=== PATIENT | male | born 1940 | race Caucasian/White ===

== ENCOUNTER 2022-05-19 11:42 | Emergency (ER) | payer MEDICARE, BC ==
[2022-05-19 13:20] LABS: #Basophils 0.1 10x3/uL (0.0-0.2); #Eosinphils 0.3 10x3/uL (0.0-0.5); #Monocytes 0.6 10x3/uL (0.0-1.1); #Neutrophils 3.5 10x3/uL (1.5-8.4); %Basophils 1.2 % (0.0-2.0); %Eosinophils 4.6 % (0.0-6.0); %Lymphocytes 21.6 % (18.0-47.0); %Monocytes 10.6 % (0.0-10.0); %Neutrophils 61.5 % (40.0-75.0); Hemoglobin 12.9 g/dL (13.5-17.5); Mean Corpuscular HGB CONC 36.1 g/dL (32.0-36.0); Mean Corpuscular Hemoglobin 35.8 pg (27.0-33.0); Mean Corpuscular Volume 99.2 fl (81.2-95.1); Mean Platelet Volume 10.1 fl (7.4-10.4); Platelet Count 229 10x3/uL (150-450); RBC Distribution Width 11.5 % (11.5-14.5); White Blood Cell (WBC) Count 5.7 10x3/uL (3.5-10.5)
[2022-05-19 13:30] LABS: ALT (SGPT) 18 U/L (8-55); AST (SGOT) 16 U/L (5-34); Albumin 3.8 g/dL (3.4-4.8); Alkaline Phosphatase 71 U/L (40-110); Anion Gap 14 mmol/L (10-20); BUN (Urea Nitrogen) 55 mg/dL (8.4-25.7); Bilirubin, Total 0.8 mg/dL (0.2-1.2); Calc. Creatinine Clearance 0 mL/min (70-130); Calcium 9.2 mg/dL (7.8-10.44); Carbon Dioxide 23 mmol/L (23-31); Chloride 102 mmol/L (98-107); Estimated GFR 51; Globulin 2.9 g/dL (2.4-3.5); Glucose 103 mg/dL (83-110); Potassium 4.6 mmol/L (3.5-5.1); Protein, Total 6.7 g/dL (5.8-8.1); Sodium 134 mmol/L (136-145)
== END 2022-05-19 14:46 | disposition home or self-care (01) ==
LOC: CSHERS 11:42
DX: E86.0 Dehydration (principal); Z86.73 Personal history of transient ischemic attack (TIA), and cerebral infarction without residual deficits
CPT/HCPCS: 36415; 70450; 71045; 80053; 85025; 96360

== ENCOUNTER 2022-08-23 11:32 | Inpatient (IN) | payer MEDICARE, BC ==
[2022-08-23] MEDS ORDERED: Cefepime 2 GM VIAL ONE (11:55)
[2022-08-23] MEDS ORDERED: VANCOMYCIN 2 GRAM/400 ML BAG 2 GM in Premix Bag 1 BAG IVPB SCH (12:30)
[2022-08-23 12:34] LABS: #Eosinphils 0.3 10x3/uL (0.0-0.5); #Monocytes 0.6 10x3/uL (0.0-1.1); #Neutrophils 6.1 10x3/uL (1.5-8.4); %Basophils 0.5 % (0.0-2.0); %Lymphocytes 9.3 % (18.0-47.0); %Monocytes 7.1 % (0.0-10.0); %Neutrophils 78.6 % (40.0-75.0); Hemoglobin 14.8 g/dL (13.5-17.5); Mean Corpuscular HGB CONC 34.6 g/dL (32.0-36.0); Mean Corpuscular Hemoglobin 36.3 pg (27.0-33.0); Mean Corpuscular Volume 104.9 fl (81.2-95.1); Mean Platelet Volume 9.4 fl (7.4-10.4); Platelet Count 173 10x3/uL (150-450); RBC Distribution Width 13.2 % (11.5-14.5); Red Blood Cell (RBC) Count 4.08 10x6/uL (4.32-5.72); White Blood Cell (WBC) Count 7.7 10x3/uL (3.5-10.5)
[2022-08-23] MEDS ORDERED: Diltiazem 125 MG/25 ML ONE (12:36)
[2022-08-23 12:39] LABS: ALT (SGPT) 8 U/L (8-55); AST (SGOT) 16 U/L (5-34); Albumin 3.2 g/dL (3.4-4.8); Alkaline Phosphatase 90 U/L (40-110); Anion Gap 16 mmol/L (10-20); BUN (Urea Nitrogen) 40 mg/dL (8.4-25.7); Bilirubin, Total 1.4 mg/dL (0.2-1.2); Calc. Creatinine Clearance 0 mL/min (70-130); Calcium 8.6 mg/dL (7.8-10.44); Carbon Dioxide 19 mmol/L (23-31); Chloride 112 mmol/L (98-107); Estimated GFR 56; Globulin 2.6 g/dL (2.4-3.5); Glucose 150 mg/dL (83-110); Lipase 37 U/L (8-78); Magnesium 2.1 mg/dL (1.6-2.6); Potassium 3.7 mmol/L (3.5-5.1); Protein, Total 5.8 g/dL (5.8-8.1); Sodium 143 mmol/L (136-145)
[2022-08-23 14:39] LABS: SARS-CoV-2 NAA Rapid Test Not Detected (NotDetected)
[2022-08-23] MEDS ORDERED: Boostrix 0.5 ML (Tdap) VIAL (>/=7 yrs of age) ONE (14:56)
[2022-08-23 15:32] LABS: Lactic Acid 1.8 mmol/L (0.5-2.2)
[2022-08-23] MEDS ORDERED: Ondansetron PF 4 MG/2 ML Vial IVP PRN (16:38)
[2022-08-23] MEDS ORDERED: Ondansetron ODT 4 MG TAB PO PRN (16:38)
[2022-08-23] MEDS ORDERED: Acetaminophen 650 MG Suppository PR PRN (16:38)
[2022-08-23] MEDS ORDERED: Acetaminophen 325 MG TAB PO PRN (16:38)
[2022-08-23 16:41] LABS: Bilirubin Neg (Negative); Blood, Urine 150 (Negative); Clarity Clear (Clear); Glucose, Urine (Dipstick) Normal (Negative); Ketone, Urine Negative (Negative); Leukocyte Negative (Negative); Nitrite Negative (Negative); Protein, Urine (Dipstick) Negative (Neg-Trace); Urobilinogen Normal mg/dL (Less than 2)
[2022-08-23] MEDS ORDERED: Sodium Chloride 0.9% 1,000 ML IV SCH (16:45)
[2022-08-23 16:50] LABS: Squamous Epithelial 0-3 HPF (0-3); WBC/HPF 0-3 HPF (0-3)
[2022-08-23 16:51] LABS: Bacteria/HPF Rare-Few HPF (None Seen)
[2022-08-23 17:48] LABS: CKMB 5.3 ng/mL (0-6.6)
[2022-08-23 19:05] VITALS: BMI 24.2
[2022-08-23] MEDS ORDERED: Sodium Chloride 0.9% 500 ML IV SCH (20:30)
[2022-08-23] MEDS ORDERED: NOREPINEPHRINE 8 MG/250 ML-D5W 250 ML IVPB SCH ×2 (21:00→23:00)
[2022-08-23] MEDS ORDERED: Tamsulosin HCl 0.4 MG CAP PO SCH (21:00)
[2022-08-23] MEDS ORDERED: Mometasone/Formoterol 200/5 60 PUFF INH SCH (21:00)
[2022-08-23] MEDS ORDERED: Zolpidem Tartrate 5 MG TAB PO SCH (21:00)
[2022-08-23] MEDS ORDERED: levETIRAcetam 500 MG TAB PO SCH (21:00)
[2022-08-23] MEDS ORDERED: Atorvastatin Calcium 10 MG TAB PO SCH (21:00)
[2022-08-23 21:31] LABS: Lavender RECEIVED; Red RECEIVED
[2022-08-23 21:41] LABS: #Eosinphils 0.1 10x3/uL (0.0-0.5); #Monocytes 0.9 10x3/uL (0.0-1.1); #Neutrophils 6.1 10x3/uL (1.5-8.4); %Basophils 0.4 % (0.0-2.0); %Eosinophils 0.8 % (0.0-6.0); %Lymphocytes 14.9 % (18.0-47.0); %Monocytes 11.1 % (0.0-10.0); %Neutrophils 72.6 % (40.0-75.0); Hemoglobin 15.7 g/dL (13.5-17.5); Mean Corpuscular HGB CONC 33.5 g/dL (32.0-36.0); Mean Corpuscular Hemoglobin 35.9 pg (27.0-33.0); Mean Corpuscular Volume 107.1 fl (81.2-95.1); Mean Platelet Volume 9.5 fl (7.4-10.4); Platelet Count 157 10x3/uL (150-450); RBC Distribution Width 13.5 % (11.5-14.5); Red Blood Cell (RBC) Count 4.37 10x6/uL (4.32-5.72); White Blood Cell (WBC) Count 8.4 10x3/uL (3.5-10.5)
[2022-08-23 21:50] LABS: INR-International Normal Ratio 1.1; PTT 28.6 sec (22.0-33.0); Prothrombin Time 11.9 sec (9.5-12.1)
[2022-08-23] MEDS ORDERED: Lactated Ringer's 500 ML IV SCH (22:15)
[2022-08-23 22:37] LABS: Anion Gap 19 mmol/L (10-20); BUN (Urea Nitrogen) 36 mg/dL (8.4-25.7); Calc. Creatinine Clearance 51 mL/min (70-130); Calcium 8.7 mg/dL (7.8-10.44); Carbon Dioxide 14 mmol/L (23-31); Chloride 111 mmol/L (98-107); Estimated GFR 57; Glucose 130 mg/dL (83-110); Potassium 4.6 mmol/L (3.5-5.1); Sodium 139 mmol/L (136-145)
[2022-08-23] MEDS ORDERED: Lactated Ringer's 1,000 ML IV SCH (22:45)
[2022-08-23 22:55] VITALS: TEMP 96.6
[2022-08-23 22:58] VITALS: BP 79/58
[2022-08-23] MEDS ORDERED: Vasopressin 20 UNIT, Admixture Fee 1 EACH in Sodium Chloride 0.9% 50 ML IV SCH (23:00)
[2022-08-23] MEDS ORDERED: Enoxaparin Sodium 80 MG/0.8 ML SYRINGE SC SCH (23:00)
[2022-08-23] MEDS: EPINEPHrine 1 MG/10 ML Abboject SYRINGE ONE (23:32)
[2022-08-23 23:38] LABS: Macrocytosis SLIGHT = 6-15 cells (100X) (0-5/hpf); Platelet Morphology Comment Appears Adequate
[2022-08-23] MEDS ORDERED: ALTEPLASE IVPB SCH (23:59)
[2022-08-23] MEDS ORDERED: ADMIXTURE FEE IVPB SCH (23:59)
[2022-08-23] MEDS ORDERED: Phenylephrine 40 MG/NS 250 ML 40 MG in Premix Bag 1 BAG IVPB SCH (23:59)
[2022-08-24] MEDS ORDERED: Cefepime 2 GM in Sodium Chloride 0.9% 100 ML IVPB SCH (00:01)
[2022-08-24] MEDS: Phenylephrine 40 MG/NS 250 ML 250 ML ONE ×2 (01:16→01:21)
[2022-08-24] MEDS: EPINEPHrine 1 MG/10 ML Abboject SYRINGE ONE (01:17)
[2022-08-24] MEDS ORDERED: EPINEPHrine 1 MG/ML AMP IVP SCH (01:30)
[2022-08-24] MEDS ORDERED: VANCOMYCIN 1.25 GM/250 ML BAG IVPB SCH (01:30)
[2022-08-24] MEDS ORDERED: Vancomycin HCl 1 GM in Sodium Chloride 0.9% 250 ML 250 ML IVPB SCH (08:00)
[2022-08-24] MEDS ORDERED: Non-Formulary Medication 1 EACH (Lisinopril [Lisinopril] 40 MG Tablet) PO SCH (09:00)
[2022-08-24] MEDS ORDERED: Enoxaparin Sodium 40 MG/0.4 ML SYRINGE SC SCH (09:00)
[2022-08-24] MEDS ORDERED: Sertraline 100 MG TAB PO SCH (09:00)
== END 2022-08-23 23:49 | disposition expired | DRG 176 ==
LOC: CSHERS 11:32 → CSHTELE 18:37 → CSHIMCU 21:20
PROVIDERS: ADMIT Family Medicine; ATTEND Family Medicine
PROC: 02HV33Z Insertion of Infusion Device into Superior Vena Cava, Percutaneous Approach (ICD-10-PCS; principal; 2022-08-23)
PROC: B548ZZA Ultrasonography of Superior Vena Cava, Guidance (ICD-10-PCS; 2022-08-23)
PROC: 3E033XZ Introduction of Vasopressor into Peripheral Vein, Percutaneous Approach (ICD-10-PCS; 2022-08-23)
DX: I26.99 Other pulmonary embolism without acute cor pulmonale (principal); N17.9 Acute kidney failure, unspecified; I10 Essential (primary) hypertension; E86.0 Dehydration; Z66 Do not resuscitate; J44.9 Chronic obstructive pulmonary disease, unspecified; E11.9 Type 2 diabetes mellitus without complications; G40.909 Epilepsy, unspecified, not intractable, without status epilepticus; Z20.822 Contact with and (suspected) exposure to COVID-19; Z88.0 Allergy status to penicillin; Z88.8 Allergy status to other drugs, medicaments and biological substances; Z79.899 Other long term (current) drug therapy; Z85.46 Personal history of malignant neoplasm of prostate; Z85.118 Personal history of other malignant neoplasm of bronchus and lung; Z87.891 Personal history of nicotine dependence; Z86.73 Personal history of transient ischemic attack (TIA), and cerebral infarction without residual deficits
CPT/HCPCS: 36415; 36416; 70450; 71045; 71275; 72125; 74177; 80053; 81003; 81015; 82553; 83605; 83690; 83735; 84484; 85025; 85610; 85730; 87040; 87086; 90471; 90715; 93005; 93010; 94660; 94760; 96365; 96366; 96367; 96368; J0171; J0692; J3370; J7030; J7120; U0002